=== PATIENT | female | born 1955 | race Caucasian/White ===

== ENCOUNTER 2018-11-14 07:37 | Inpatient (IN) | payer OTHER ==
[~2018-11-14] VITALS: Ht 165.1 cm; Wt 88.5 kg
[2018-11-14 07:43] VITALS: Ht 165.1 cm; Wt 88.5 kg
--- NOTE | 2018-11-14 07:54 | NUR ---
PT BROUGHT IN TO ED BY SPOUSE WITH C/O DIZZINESS AND NUMBNESS TO L ARM. AT BEDSIDE PT IS AAOX4, RESPS E/U, SKIN IS PINK, WARN AND DRY. PERRLA. ALSO, PT IS CALM AND COOPERATIVE. PT AMBULATED FROM LOBBY TO ROOM WITH STEADY GAIT AND NO ASSIST. PT PLACED ON MONITOR. PT ORIENTED TO ROOM, USE OF CALL ARTEAGA AND BED IN LOWEST POSITION. BED RAIL IS UP X1 FOR SAFETY.
--- NOTE | 2018-11-14 08:41 | NUR ---
PT MEDICATED PER MD ORDERS, PT VERBALIZES UNDERSTANDING OF RX. SEE EMAR FOR DETAILS.
--- NOTE | 2018-11-14 08:41 | NUR ---
PT TAKEN TO CT
[2018-11-14 08:46] LABS: BASOPHIL % 0.7 % (0-2); PLATELET COUNT 177 x10^3mcL (130-400); RED CELL DISTRIBUTION WIDTH 13.6 % (11.5-14.5)
[2018-11-14 08:52] LABS: CALCIUM 9.1 mg/dL (8.5-10.1); CARBON DIOXIDE 22.1 mmol/L (21-32); POTASSIUM SERUM 4.2 mmol/L (3.5-5.1)
[2018-11-14 08:59] LABS: ALBUMIN 3.4 g/dL (3.4-5.0); BILIRUBIN TOTAL 0.39 mg/dL (0.20-1.00); PHOSPHOROUS 2.6 mg/dL (2.5-4.9); URIC ACID 5.6 mg/dL (2.6-6.0)
[2018-11-14] MEDS ORDERED: ZESTRIL5 MG PO (10:22)
[2018-11-14] MEDS ORDERED: FLONS (10:23)
[2018-11-14] MEDS ORDERED: ASPIR 8181 MG PO (10:23)
[2018-11-14] MEDS ORDERED: TOPROL XL25 MG PO (10:23)
[2018-11-14] MEDS ORDERED: ALLEGRA ALLERG180 M1 PO (10:24)
--- NOTE | 2018-11-14 10:26 | NUR ---
PT MEDICATED PER EMAR.
[2018-11-14] MEDS ORDERED: ZOCOR20 MG PO (11:05)
--- NOTE | 2018-11-14 11:55 | NUR ---
PT RESTING IN POSITION OF COMFORT. NO ACUTE DISTRESS NOTED. WILL CONTINUE TO MONITOR.
--- NOTE | 2018-11-14 12:03 | NUR ---
HAND-OFF REPORT TO TORY VASQUEZ FROM TELE FLOOR TO ASSUME REPORT.
--- NOTE | 2018-11-14 12:15 | NUR ---
RECEIVED PATIENT FROM ED VIA GURNEY. PATIENT IS STABLE NO APPAREENT SIGNS OF PAIN, SOB, OR RESPIRATORY DISTRESS. PATIENT ON ROOM AIR. DENIES CHEST PAIN, OR DIZZINESS AT THIS TIME. IV TO RIGHT WRIST SALINE LOCKED, NO EDEMA OR ERYTHEMA NOTED TO SITE. AT BEDSIDE. PATIENT IS ALER T AND ORIENTED X4. CALL LIGHT AND PHONE WITHIN REACH. BED IN LOW POSITION. PATIENT ORIENTED TO ROOM. QUESTIONS AND CONCERNS ADDRESSED. SAFETY PRECAUTIONS IN PLACE.
[2018-11-14 12:32] LABS: CHOLESTEROL/HDL RATIO 4.1; MAGNESIUM 1.6 mg/dL (1.8-2.4)
--- NOTE | 2018-11-14 13:47 | NUR ---
PATIENT IS RESTING COMFORTABLY IN BED. NO APPARENT SIGNS OF PAIN, SOB, OR RESPIRATORY DISTRESS. PATIENT DENIES CHEST PAIN, DIZZNESS, OR HEADACHE. DENIES OTHER NEEDS AT THIS TIME. SAFETY PRECAUTIONS IN PLACE.
[2018-11-14 13:52] VITALS: BP 124/79
[2018-11-14 14:06] VITALS: BP 114/73
--- NOTE | 2018-11-14 15:06 | NUR ---
PATIENT IS STABLE, NO APPARENT SIGNS OF PAIN, SOB, OR RESPIRATORY DISTRESS. PATIENT DENIES CHEST PAIN, DIZZINESS, OR OTHER NEEDS AT THIS TIME. QUESTIONS AND CONCERNS ADDRESSED, SAFETY PRECAUTIONS IN [place].
--- NOTE | 2018-11-14 15:30 | NUR ---
PAGED DOCTOR ITZEL TO MAKE AWARE OF MAGNESIUM LEVEL 1.6. WAITING FOR MD TO CALL BACK.
--- NOTE | 2018-11-14 16:39 | NUR ---
ADMINISTERED MEDICATION PER EMAR. EDUCATED PATIENT ON NEED FOR MEDICATION WELL ADVERSE EFFECTS TO REPORT. PATIENT VERBALIZED UNDERSTANDING. QUESTIONS AND CONCERNS ADDRESSED. SAFETY PRECAUTIONS IN PLACE.
--- NOTE | 2018-11-14 17:47 | NUR ---
PATIENT IS STABLE, NO APPARENT SIGNS OF PAIN, SOB, OR RESPIRATORY DISTRESS. PATIENT DENIES CHEST PAIN, DIZZINESS, OR OTHER NEEDS AT THIS TIME. QUESTIONS AND CONCERNS ADDRESSED, SAFETY PRECAUTIONS IN [place]. FAMILY AT BEDSIDE.
--- NOTE | 2018-11-14 18:10 | NUR ---
PATIENT IS RESTING COMFORTABLY IN BED. NO APPARENT SIGNS OF PAIN, SOB, OR RESPIRATORY DISTRESS. ON ROOM AIR. PATIENT IS ALERT AND ORIENTED X4. COOPERATIVE WITH NURSING CARE. AMBULATORY. ON TELE 7. SCHEDULED FOR ECHO AND STRESS TEST TOMORROW 11/15/18 PER MD HOLD METOPROLOL UNTIL AFTER STRESS TEST. IV TO RIGHT WRIST CDI, NO EDEMA OR ERYTHEMA NOTED AT SITE. WILL ENDORSE CARE TO WINDOWS CONSULTANT NURSE.
--- NOTE | 2018-11-14 19:16 | NUR ---
ENDORSED CARE TO OTORHINOLARYNGOLOGIST NURSE.
[2018-11-14 21:37] VITALS: BP 100/65
--- NOTE | 2018-11-14 21:56 | NUR ---
PATIENT RECEIVED AWAKE, ALERT, ORIENTED X4 IN BED. FAMILY MEMBER AT THE BEDSIDE. RESPIRATION EVEN AND UNLABORED, ON ROOM AIR. SALINE LOCK TO RIGH WRIST PATENT AND INTACT. TRACE EDEMA TO BLE. LBM 11/14/2018. VOIDING FREELY WITHOUT DIFFICULTY. MOVES ALL EXTREMITIES FREELY, AMBULATORY. SKIN DRY AND INTACT. DENIES PAIN AT THIS TIME. ON TELE #7. WILL CONTINUE TO MONITOR.
--- NOTE | 2018-11-15 06:18 | NUR ---
PATIENT RESTING IN BED. RESPIRATION EVEN AND UNLABORED, ON ROOM AIR. SALINE LOCK TO LEFT ANTECUBITAL AREA PATENT AND INTACT. FOR STRESS TEST AT 1430. DENIES PAIN AT THIS TIME. ASSISTED WITH NEEDS. SAFETY OBSERVED. PLACED BED IN THE LOWEST POSITION. PLACED CALL LIGHT WITHIN REACH AT ALL TIMES.
[2018-11-15 06:22] VITALS: BP 100/61
[2018-11-15 06:59] LABS: CALCIUM 8.5 mg/dL (8.5-10.1); CARBON DIOXIDE 25.4 mmol/L (21-32); POTASSIUM SERUM 4.6 mmol/L (3.5-5.1)
[2018-11-15 07:08] LABS: BASOPHIL % 0.4 % (0-2); PLATELET COUNT 174 x10^3mcL (130-400); RED CELL DISTRIBUTION WIDTH 13.9 % (11.5-14.5)
[2018-11-15 07:30] VITALS: BP 127/70
--- NOTE | 2018-11-15 07:34 | NUR ---
RECEIVED AWAKE, ALERT AND ORIENTED. NO C/O SOB NOR CHEST PAIN. NO ACUTE DISTRESS. VS WNL.CALL LIGHT WITHIN REACH. WILL CONTINUE WITH PLAN OF CARE.
[2018-11-15 12:22] VITALS: BP 102/71
--- NOTE | 2018-11-15 14:09 | NUR ---
WAITING FOR LEXISCAN. IN NO DISTRESS. DENIES CHEST DISCOMFORT.
--- NOTE | 2018-11-15 14:26 | NUR ---
PT LEFT TO NUC MEDS FOR STRESS TEST IN NO DISTRESS. AWAKE AND ALERT.
[2018-11-15 16:35] VITALS: BP 105/73
--- NOTE | 2018-11-15 18:44 | NUR ---
PT REMAINS IN NO DISTRESS, AWAKE AND ALERT. NO CHANGES IN VS. NO C/O CHEST PAIN OR DISCOMFORT. HL PATENT. CALL LIGHT WITHIN REACH. WILL BE ENDORSED TO INCOMING SHIFT.
[2018-11-15 19:27] VITALS: BP 105/73
--- NOTE | 2018-11-15 20:00 | NUR ---
PATIENT DISCHARGED TO HOME VIA PRIVATE AUTO IN STABLE CONDITION. DISCONTINUED IV AND MONITOR. DISCHARGE INSTRUCTION EXPLAINED TO PATIENT AND PACKET GIVEN. FAMILY MEMBER AT THE BEDSIDE.
== END 2018-11-15 20:06 | disposition home or self-care (01) | DRG 303 ==
LOC: ED 07:37 → DU 10:58
PROVIDERS: Emergency Medicine; ADMIT Internal Medicine
DX: I25.10 Atherosclerotic heart disease of native coronary artery without angina pectoris (principal); I10 Essential (primary) hypertension; E78.5 Hyperlipidemia, unspecified; Z79.82 Long term (current) use of aspirin; Z68.32 Body mass index [BMI] 32.0-32.9, adult; Z98.891 History of uterine scar from previous surgery; Z82.49 Family history of ischemic heart disease and other diseases of the circulatory system; Z84.1 Family history of disorders of kidney and ureter
CPT/HCPCS: A9500; G0378; J2785; J3475; J7040; Q0092